=== PATIENT | female | born 1935 | race Caucasian/White ===

== ENCOUNTER 2021-06-14 12:33 | Emergency (ER) | payer OTHER, SELFPAY ==
[~2021-06-14] VITALS: Ht 154.9 cm; Wt 54.4 kg
[2021-06-14 12:38] VITALS: BP_SYST 126
[2021-06-14] MEDS ORDERED: NACL 0.9% 1,000 ML IV ONE (13:00)
[2021-06-14 13:47] LABS: BASOPHILS % (AUTO) 0.4 % (0.0-2.0); EOSINOPHILS # (AUTO) 0.1 K/uL (0.0-0.4); EOSINOPHILS % (AUTO) 0.7 % (0.0-4.0); HEMATOCRIT 40.5 % (36-48); HEMOGLOBIN 13.5 g/dL (12.0-16.0); LYMPHOCYTES # (AUTO) 2.3 K/uL (1.0-5.5); LYMPHOCYTES % (AUTO) 25.6 % (20.5-51.5); MEAN CORPUSCULAR HEMOGLOBIN 29 pg (27-31); MEAN CORPUSCULAR HGB CONC 33 % (32-36); MEAN CORPUSCULAR VOLUME 88 fL (79.0-98.0); MONOCYTES # (AUTO) 0.8 K/uL (0.0-1.0); MONOCYTES % (AUTO) 9.4 % (1.7-9.3); NEUTROPHILS # (AUTO) 5.7 K/uL (1.8-7.7); NEUTROPHILS % (AUTO) 63.9 % (40.0-70.0); PLATELET COUNT (AUTO) 217 K/uL (130-430); RED BLOOD CELL COUNT(AUTO) 4.61 MIL/uL (4.2-6.2); RED CELL DISTRIBUTION WIDTH 15.1 % (9.0-15.0)
[2021-06-14 13:48] LABS: CHLORIDE 105 mmol/L (98-107); CREATININE 0.82 mg/dL (0.55-1.30); GLUCOSE 95 mg/dL (70-99); SODIUM SERUM 141 mmol/L (136-145); UREA NITROGEN, BLOOD 16 mg/dL (8-21)
[2021-06-14 13:55] LABS: ALANINE AMINOTRANSFERASE 15 U/L (12-78); ALBUMIN 2.6 g/dL (3.4-4.8); ASPARTATE AMINOTRANSFERASE 21 U/L (10-37); TOTAL BILIRUBIN 0.5 mg/dL (0.0-1.0)
[2021-06-14 14:06] LABS: ANION GAP 10 (5-15)
[2021-06-14 14:07] LABS: POTASSIUM 2.9 mmol/L (3.5-5.1)
[2021-06-14 14:08] LABS: C-REACTIVE PROTEIN QUANT 2.5 mg/dL (0-0.5)
[2021-06-14] MEDS ORDERED: KCL 20 mEq in 100 mL (PREMIX) 100 ML IV ONE (14:30)
[2021-06-14] MEDS ORDERED: VANC125C10 PO (15:42)
[2021-06-14] MEDS ORDERED: VANCOMYCIN HCL Non-Formulary 125 MG CAPSULE PO ONE (15:45)
[2021-06-14] MEDS ORDERED: POTASSIUM CHLORIDE 20 MEQ TAB.PRT.SR PO ONE (15:45)
[2021-06-14 19:34] VITALS: BP_SYST 132
== END 2021-06-14 19:35 ==
LOC: SED 12:33
DX: A04.72 Enterocolitis due to Clostridium difficile, not specified as recurrent (principal); E87.6 Hypokalemia; Z79.899 Other long term (current) drug therapy; Z20.822 Contact with and (suspected) exposure to COVID-19
CPT/HCPCS: 36415; 71045; 80053; 81002; 82550; 83605; 83735; 85025; 86140; 87040; 87426; 93005; 96361; 96365; 96366; 99285; J3480; J7030